=== PATIENT | male | born 1970 | race Caucasian/White ===

== ENCOUNTER 2017-01-20 00:10 | Emergency (ER) | payer BC ==
[2017-01-20 00:38] VITALS: BP 146/88
[2017-01-20] MEDS ORDERED: Sodium Chloride 0.9% 1,000 ML IV SCH (00:45)
[2017-01-20] MEDS ORDERED: Sodium Chloride 0.9% 10 ML Syringe FLUSH PRN (00:51)
[2017-01-20] MEDS ORDERED: Sodium Chloride 0.9% 2.5 ML Syringe FLUSH PRN (00:51)
[2017-01-20] MEDS ORDERED: fentaNYL 100 MCG/2 ML SDV IVPUSH PRN (00:54)
[2017-01-20] MEDS ORDERED: Ondansetron 4 MG/2 ML SDV IVPUSH ONE (00:54)
[2017-01-20] MEDS ORDERED: HYDROmorphone 2 MG/ML Syringe IVPUSH ONE (02:53)
[2017-01-20] MEDS ORDERED: Acetaminophen/oxyCODONE 325-10 MG Tab PO ONE (03:11)
--- NOTE | 2017-01-20 03:12 | EDM.PDOC ---
ED HPI GENERAL MEDICAL PROBLEM - General Chief Complaint: Flank Pain Stated Complaint: LOWER BACK PAIN, THINKS KIDNEY STONE Time Seen by Provider: 01/20/17 02:00 Source of Information: Reports: Patient - History of Present Illness INITIAL COMMENTS - FREE TEXT/NARRATIVE: recent onset of left flank pain and feeling of needing to void pain radiates to penis left flank Pain Score (Numeric/FACES): 7 - Related Data Allergies Allergy/AdvReac Type Severity Reaction Status Date / Time shellfish derived Allergy Edema Verified 01/20/17 00:29 Home Meds: Home Meds Aspirin/Calcium Carbonate/Mag [Aspirin Buffered 325 mg Tab] 1 tab PO DAILY 01/20 [History] Carvedilol 6.25 mg PO BID 01/20/17 [History] Lisinopril 0 mg PO DAILY 01/20/17 [History] atorvaSTATin [Lipitor] 0 mg PO BEDTIME 01/20/17 [History] Past Medical History - Past Health History Medical/Surgical History: Denies Medical/Surgical History Cardiovascular History: Reports: High Cholesterol, Hypertension, Stents Respiratory History: Reports: None Genitourinary History: Denies: Chronic Renal Insuffiency Endocrine/Metabolic History: Reports: Obesity/BMI 30+. Denies: Hypoparathyroidism - Past Surgical History GI Surgical History: Reports: Appendectomy Social & Family History - Family History Family Medical History: Noncontributory - Tobacco Use Smoking Status *Q: Current Every Day Smoker Years of Tobacco use: 25 Packs/Tins Daily: 1 - Recreational Drug Use Recreational Drug Use: No ED ROS GENERAL - Review of Systems Review Of Systems: See Below Constitutional: Denies: Fever, Chills Respiratory: Denies: Wheezing, Cough, Sputum, Hemoptysis GI/Abdominal: Denies: Vomiting ED EXAM, RENAL/ - Physical Exam Exam: See Below General Appearance: Alert, No Apparent Distress Respiratory/Chest: No Respiratory Distress GI/Abdominal: Soft, Non-Tender Course - Vital Signs Last Recorded V/S: Last Vital Signs Temp 97 F 01/20/17 00:33 Pulse 71 01/20/17 00:33 Resp 18 01/20/17 00:33 BP 146/88 H 01/20/17 00:33 Pulse Ox 95 01/20/17 00:33 - Orders/Labs/Meds Orders: Active Orders 24 hr Category Date Time Status Insert Urinary Catheter [OM.PC] Q24H Care 01/20/17 01:00 Ordered Urinary Catheter Assessment [RC] ASDIRECTED Care 01/20/17 00:52 Active Abdomen Pelvis wo Cont [CT] Stat Exams 01/20/17 00:53 Taken CULTURE URINE [RM] Stat Lab 01/20/17 01:45 Received Acetaminophen/oxyCODONE [Percocet 325-10 MG] Med 01/20/17 03:11 Once 1 tab PO ONETIME ONE Sodium Chloride 0.9% [Saline Flush] Med 01/20/17 00:51 Active 10 ml FLUSH ASDIRECTED PRN Sodium Chloride 0.9% [Saline Flush] Med 01/20/17 00:51 Active 2.5 ml FLUSH ASDIRECTED PRN fentaNYL [Sublimaze] Med 01/20/17 00:54 Active 50 mcg IVPUSH Q1H PRN Saline Lock Insert [OM.PC] Stat Oth 01/20/17 00:51 Ordered Medication Orders Fentanyl (Sublimaze) 50 mcg IVPUSH Q1H PRN PRN Reason: Pain Last Admin: 01/20/17 01:23 Dose: 50 mcg Oxycodone/Acetaminophen (Percocet 325-10 Mg) 1 tab PO ONETIME ONE Stop: 01/20/17 03:12 Sodium Chloride (Saline Flush) 10 ml FLUSH ASDIRECTED PRN PRN Reason: Keep Vein Open Sodium Chloride (Saline Flush) 2.5 ml FLUSH ASDIRECTED PRN PRN Reason: Keep Vein Open Labs: Laboratory Tests 01/20/17 01/20/17 01/20/17 Range/Units 01:15 01:45 01:59 WBC 14.30 H (4.0-11.0) K/uL RBC 4.85 (4.50-5.90) M/uL Hgb 15.0 (13.0-17.0) g/dL Hct 44.0 (38.0-50.0) % MCV 90.7 (80.0-98.0) fL MCH 30.9 (27.0-32.0) pg MCHC 34.1 (31.0-37.0) g/dL RDW Std Deviation 43.1 (28.0-62.0) fl RDW Coeff of Jovanny 13 (11.0-15.0) % Plt Count 311 (150-400) K/uL MPV 9.90 (7.40-12.00) fL Neut % (Auto) 80.6 H (48.0-80.0) % Lymph % (Auto) 10.8 L (16.0-40.0) % [place] % (Auto) 6.8 (0.0-15.0) % Eos % (Auto) 1.3 (0.0-7.0) % Baso % (Auto) 0.5 (0.0-1.5) % Neut # (Auto) 11.5 H (1.4-5.7) K/uL Lymph # (Auto) 1.6 (0.6-2.4) K/uL [place] # (Auto) 1.0 H (0.0-0.8) K/uL Eos # (Auto) 0.2 (0.0-0.7) K/uL Baso # (Auto) 0.1 (0.0-0.1) K/uL Sodium 141 (136-146) mmol/L Potassium 4.0 (3.5-5.1) mmol/L Chloride 108 (98-110) mmol/L Carbon Dioxide 24 (21-31) mmol/L BUN 15 (6.0-23.0) mg/dL Creatinine 1.3 (0.6-1.5) mg/dL Est Cr Clr Drug Dosing 69.42 mL/min Estimated GFR (MDRD) 59.7 ml/min Glucose 137 H (60-110) mg/dL Calcium 9.4 (8.8-10.8) mg/dL Total Bilirubin 0.6 (0.1-1.5) mg/dL AST 24 (5-40) IU/L ALT 35 (8-54) IU/L Alkaline Phosphatase 119 (40-150) Total Protein 7.4 (6.0-8.0) g/dL Albumin 4.3 (3.5-5.0) g/dL Globulin 3.1 (2.0-3.5) g/dL Albumin/Globulin Ratio 1.4 (1.3-2.8) Urine Color YELLOW Urine Appearance CLOUDY Urine pH 5.0 (5.0-8.0) Ur Specific [place] >= 1.030 (1.001-1.035) Urine Protein TRACE (NEGATIVE) mg/dL Urine Glucose (UA) NEGATIVE (NEGATIVE) mg/dL Urine Ketones NEGATIVE (NEGATIVE) mg/dL Urine Occult Blood LARGE H (NEGATIVE) Urine Nitrite NEGATIVE (NEGATIVE) Urine Bilirubin NEGATIVE (NEGATIVE) Urine Urobilinogen 1.0 (<2.0) EU/dL Ur Leukocyte Esterase NEGATIVE (NEGATIVE) Urine RBC 2-4 (0-2/HPF) Urine WBC 0-1 (0-5/HPF) Ur Epithelial Cells RARE (NONE-FEW) Amorphous Sediment LIGHT (NEGATIVE) Urine Bacteria FEW (NEGATIVE) Urine Mucus LIGHT (NONE-MOD) Meds: Medications Generic Name Dose Route Start Last Admin Trade Name Freq PRN Reason Stop Dose Admin Fentanyl 50 mcg 01/20/17 00:54 01/20/17 01:23 Sublimaze IVPUSH 50 mcg Q1H PRN Administration Pain Oxycodone/Acetaminophen 1 tab 01/20/17 03:11 Percocet 325-10 Mg PO 01/20/17 03:12 ONETIME ONE Sodium Chloride 10 ml 01/20/17 00:51 Saline Flush FLUSH ASDIRECTED PRN Keep Vein Open Sodium Chloride 2.5 ml 01/20/17 00:51 Saline Flush FLUSH ASDIRECTED PRN Keep Vein Open Discontinued Medications Generic Name Dose Route Start Last Admin Trade Name Freq PRN Reason Stop Dose Admin Hydromorphone HCl 2 mg 01/20/17 02:53 01/20/17 03:00 Dilaudid IVPUSH 01/20/17 02:54 2 mg ONETIME ONE Administration Sodium Chloride 1,000 mls @ 150 mls/hr 01/20/17 00:45 01/20/17 01:17 Normal Saline IV 150 mls/hr ASDIRECTED TON Administration Ondansetron HCl 4 mg 01/20/17 00:54 01/20/17 01:21 Zofran IVPUSH 01/20/17 00:55 4 mg ONETIME ONE Administration - Re-Assessments/Exams Free Text/Narrative Re-Assessment/Exam: 01/20/17 03:10 discussed findings with patient Departure - Departure Time of Disposition: 03:12 Disposition: Home, Self-Care 01 Condition: Fair Clinical Impression: Ureteric colic - Discharge Information Referrals: PCP,None [Primary Care Provider] - Forms: ED Department Discharge Additional Instructions: plenty of fluid off work until Monday strain urine recheck if not better by monday; sooner if worsens mustapha ODT #20 Percocet 10 #20 1 po q 4 hours prn do not take tylenol with percocet percocet may be sedating, constipating and habit forming - My Orders Last 24 Hours: My Active Orders 01/20/17 00:51 Sodium Chloride 0.9% [Saline Flush] 10 ml FLUSH ASDIRECTED PRN Sodium Chloride 0.9% [Saline Flush] 2.5 ml FLUSH ASDIRECTED PRN Saline Lock Insert [OM.PC] Stat 01/20/17 00:52 Urinary Catheter Assessment [RC] ASDIRECTED 01/20/17 00:53 Abdomen Pelvis wo Cont [CT] Stat 01/20/17 00:54 fentaNYL [Sublimaze] 50 mcg IVPUSH Q1H PRN 01/20/17 01:00 Insert Urinary Catheter [OM.PC] Q24H 01/20/17 01:45 CULTURE URINE [RM] Stat 01/20/17 03:11 Acetaminophen/oxyCODONE [Percocet 325-10 MG] 1 tab PO ONETIME ONE - Assessment/Plan Last 24 Hours: My Active Orders 01/20/17 00:51 Sodium Chloride 0.9% [Saline Flush] 10 ml FLUSH ASDIRECTED PRN Sodium Chloride 0.9% [Saline Flush] 2.5 ml FLUSH ASDIRECTED PRN Saline Lock Insert [OM.PC] Stat 01/20/17 00:52 Urinary Catheter Assessment [RC] ASDIRECTED 01/20/17 00:53 Abdomen Pelvis wo Cont [CT] Stat 01/20/17 00:54 fentaNYL [Sublimaze] 50 mcg IVPUSH Q1H PRN 01/20/17 01:00 Insert Urinary Catheter [OM.PC] Q24H 01/20/17 01:45 CULTURE URINE [RM] Stat 01/20/17 03:11 Acetaminophen/oxyCODONE [Percocet 325-10 MG] 1 tab PO ONETIME ONE
--- NOTE | 2017-01-20 09:35 | CT ---
EXAM DATE: 01/20/17 PATIENT'S AGE: 46 Patient: GUNNER CONKLIN Facility: [place], [place] Site . Site : [id number] Study: CT Abdomen/Pelvis [id number]/21/2017 2:03:21 AM Ordering Physician: Tanvi Gilliland Final Report: INDICATION: abd pain TECHNIQUE: CT abdomen and pelvis without contrast. COMPARISON: None FINDINGS: Lower chest: Mild scarring/atelectasis. Liver: Unremarkable. Spleen: Unremarkable. Pancreas: Unremarkable. Gallbladder and bile ducts: Unremarkable. Kidneys: 2 mm calculus just proximal to the left ureterovesicular junction with associated left-sided hydroureter/ hydronephrosis and periureteral/perinephric stranding. Kong catheter in place decompressing the urinary bladder. . Adrenal glands: Unremarkable. GI tract: Unremarkable. Appendix is normal. Vascular structures: Atherosclerotic disease. Lymph nodes: Unremarkable. Miscellaneous: Fat containing umbilical hernia. No free air or significant free fluid. Pelvic Organs: Unremarkable. Bones: Degenerative changes. IMPRESSION: 2 mm calculus just proximal to the left ureterovesicular junction with associated left-sided hydroureter/ hydronephrosis. Dictated by Julian Robison MD @ 01/20/2017 2:13:22 AM Dictated by: Julian Robison MD @ 01/20/2017 02:13:26 (Electronic Signature) Report Signed by Proxy. [facility]
== END 2017-01-20 03:23 | disposition home or self-care (01) ==
LOC: MW.ED 00:10
DX: N13.2 Hydronephrosis with renal and ureteral calculous obstruction (principal); F17.210 Nicotine dependence, cigarettes, uncomplicated; I10 Essential (primary) hypertension; E78.00 Pure hypercholesterolemia, unspecified; E66.9 Obesity, unspecified; Z79.82 Long term (current) use of aspirin; Z91.013 Allergy to seafood; Z79.899 Other long term (current) drug therapy; Z90.49 Acquired absence of other specified parts of digestive tract
CPT/HCPCS: 51702; 74176; 80053; 81001; 85025; 87086; 96361; 96374; 96375; 99284; A9270; J1170; J2405; J3010; J7040; 99283